=== PATIENT | female | born 1985 | race Two or more races ===

== ENCOUNTER → 2017-06-05 | Emergency (ER) | payer OTHER ==
[~2017-06-05] VITALS: Ht 167.6 cm; Wt 89.4 kg
[~2017-06-05] MED LIST: BUDESONIDE0.5 MG/2 M IH; FEOSOL325 MG PO; FOLIC ACID1 MG PO; IPRAT-ALBUT 0.5-3 ML IH; IRON1TAB4 PO; MEDROL4 MG PO; MEDROLPACK PO; MUCINEX DM ER1 EAC1 PO; PROMETH-CODEIN 65 ML PO; PROMETHAZINE W473 ML PO; SINGULAIR10 MG PO; SYNTHROID50 MCG PO; TRI-SPRINTEC T1 EACH PO; TUSICOF LIQUID120 ML PO; TUSNEL LIQUID178 ML PO; ZITHROMAX TRI-500 MG PO
== END | disposition home or self-care (01) ==
LOC: ER 22:46
DX: J45.998 Other asthma (principal)

== ENCOUNTER 2017-11-23 16:24 | Emergency (ER) | payer OTHER ==
[~2017-11-23] VITALS: Ht 167.6 cm; Wt 90.7 kg
== END 2017-11-23 21:36 | disposition home or self-care (01) ==
LOC: ER 16:24
DX: B34.9 Viral infection, unspecified (principal); D50.9 Iron deficiency anemia, unspecified

== ENCOUNTER 2018-06-16 09:07 | Emergency (ER) | payer OTHER ==
[~2018-06-16] VITALS: Ht 167.6 cm; Wt 88.0 kg
[2018-06-16] MEDS ORDERED: ZITHROMAX TRI-500 MG PO (12:15)
[2018-06-16] MEDS ORDERED: TUSSI PRES-B L120 M1 PO (12:15)
[2018-06-16] MEDS ORDERED: MEDROLPACK PO (12:15)
== END 2018-06-16 12:42 | disposition home or self-care (01) ==
LOC: ER 09:07
DX: B34.9 Viral infection, unspecified (principal)

== ENCOUNTER 2022-07-04 11:05 | Emergency (ER) | payer OTHER ==
[~2022-07-04] VITALS: Ht 167.6 cm; Wt 89.4 kg
[~2022-07-04 11:05] MED LIST changes: +TUSSI PRES-B L120 M1 PO
== END 2022-07-04 13:10 | disposition home or self-care (01) ==
LOC: ER 11:05
DX: S70.11XA Contusion of right thigh, initial encounter (principal); Y28.9XXA Contact with unspecified sharp object, undetermined intent, initial encounter; Y93.9 Activity, unspecified; Y92.9 Unspecified place or not applicable

== ENCOUNTER 2024-01-29 04:54 | Inpatient (IN) | payer OTHER ==
[~2024-01-29] VITALS: Ht 167.6 cm; Wt 2.7 kg
[2024-01-29] MEDS ORDERED: NIFEDIPINE20 MG PO (06:13)
[2024-01-29] MEDS ORDERED: PRENATAL CAPLE1 EAC1 PO (06:14)
[2024-01-29] MEDS ORDERED: IRON236 MG PO (06:14)
[2024-01-29] MEDS ORDERED: CEFAZOLIN SODIUM 1,000 MG VIAL IV SCH ×2 (07:45→12:00)
[2024-01-29] MEDS ORDERED: RINGERS SOLUTION,LACTATED 1,000 ML IV SCH (07:45)
[2024-01-29] MEDS ORDERED: OXYTOCIN 10 UNITS/ML VIAL IV NR (08:00)
[2024-01-29] MEDS ORDERED: ERYTHROMYCIN BASE 1 GM TUBE OP NR (08:00)
[2024-01-29] MEDS ORDERED: CARBOPROST TROMETHAMINE 250 MCG/ML AMPUL IM NR (08:00)
[2024-01-29] MEDS ORDERED: MEPERIDINE HCL/PF 50 MG,MEPERIDINE HCL/PF 25 MG IM SCH (10:30)
[2024-01-29] MEDS ORDERED: MORPHINE SULFATE 4 MG/ML VIAL IV ONE ×2 (11:05→11:35)
[2024-01-29] MEDS ORDERED: PROMETHAZINE HCL 50 MG/ML AMPUL IV SCH (12:00)
[2024-01-29] MEDS ORDERED: CEFAZOLIN SODIUM 1,000 MG VIAL ONE (12:10)
[2024-01-30 06:40] LABS: HEMOGLOBIN 10.9 g/dL (12.0-15.00); MEAN CELL VOLUME 87.1 fL (80.00-100.00); MEAN CORPUSCULAR HEMOGLOBIN 29.7 pg (27.00-32.0); MEAN CORPUSCULAR HGB CONC 34.1 g/dl (32.0-36.0); RED BLOOD COUNT 3.68 M/uL (4.00-6.00); RED CELL DISTRIBUTION WIDTH 14.7 % (11.5-14.5)
[2024-01-30 07:16] LABS: PLATELET COUNT 122 K/uL (150-450)
[2024-01-30] MEDS ORDERED: OxyCODONE HCL/APAP UD (PERCOCET) PO PRN (11:45)
[2024-01-31 08:13] LABS: HEMATOCRIT 29.4 % (36.0-45.00); HEMOGLOBIN 10.2 g/dL (12.0-15.00); MEAN CELL VOLUME 86.6 fL (80.00-100.00); MEAN CORPUSCULAR HEMOGLOBIN 30.1 pg (27.00-32.0); MEAN CORPUSCULAR HGB CONC 34.7 g/dl (32.0-36.0); RED BLOOD COUNT 3.39 M/uL (4.00-6.00); RED CELL DISTRIBUTION WIDTH 14.8 % (11.5-14.5)
[2024-01-31 08:18] LABS: PLATELET COUNT 120 K/uL (150-450)
[2024-01-31] MEDS ORDERED: IRON FUM,PS/FOLIC/BCOMP,C NO.9 1 CAP CAPSULE PO NR (11:15)
[2024-01-31] MEDS ORDERED: IRON FUM,PS/FOLIC/BCOMP,C NO.9 1 CAP CAPSULE PO SCH (17:00)
== END 2024-01-31 13:06 | disposition home or self-care (01) | DRG 788 ==
LOC: LDR → O/R 08:30 → OB/GYN 10:26
PROVIDERS: ADMIT Specialist; ATTEND Specialist
PROC: 4A1HXCZ Monitoring of Products of Conception, Cardiac Rate, External Approach (ICD-10-PCS; 2024-01-29)
PROC: 10D00Z1 Extraction of Products of Conception, Low, Open Approach (ICD-10-PCS; principal; 2024-01-29 13:00)
DX: O32.2XX0 Maternal care for transverse and oblique lie, not applicable or unspecified (principal); Z3A.38 38 weeks gestation of pregnancy; Z37.0 Single live birth; Z20.822 Contact with and (suspected) exposure to COVID-19